=== PATIENT | male | born 1970 | race Caucasian/White ===

== ENCOUNTER 2021-04-04 16:11 | Emergency (ER) | payer MEDICARE, SELFPAY ==
[2021-04-04 17:20] VITALS: BP 135/72; PULSE 60; RESP 20; TEMP 36.8; O2SAT 98; BMI 38.0
[2021-04-04 17:49] LABS: UTC Strep Screen (Rapid) Negative (Negative)
--- NOTE | 2021-04-04 17:58 | HMH.EDUTC ---
[facility] [place] Disposition Clinical Impression: Sinusitis Qualifiers: Sinusitis location: unspecified location Chronicity: acute Recurrence: non-recurrent Qualified Code(s): J01.90 - Acute sinusitis, unspecified Pharyngitis Qualifiers: Pharyngitis/tonsillitis etiology: unspecified etiology Qualified Code(s): J02.9 - Acute pharyngitis, unspecified Disposition: Home, Self-Care Condition on Discharge: Good Instructions: DI for Sinusitis Additional Instructions: Drink plenty of fluids. Take tylenol or ibuprofen for pain or fever. Take the medications as directed. Follow up with your regular doctor. GO TO THE ER FOR ANY WORSENING SYMPTOMS Quarantine until you know the results of your covid-19 test. If it is positive, the health department should call you and give you further instructions about your length of Quarantine and other things. Notify your school or workplace of your results and follow their instructions regarding return to work/school. Don't start the oral steroids until tomorrow, since you had the shot here today. Prescriptions: Amoxicillin/Potassium Clav [Augmentin 875-125 Tablet] 1 tab PO Q12H 10 Days #20 tab Transmission Status: Received by [facility] #[id number] predniSONE [Prednisone 20mg Tab] 20 mg PO BID 4 Days #8 tab Transmission Status: Received by [facility] #[id number] Benzonatate [Tessalon Perle 100mg Cap] 100 mg PO TIDP PRN #30 cap PRN Reason: Cough Transmission Status: Received by [facility] #[id number] Referrals: Provider,Referral, [Primary Care Provider] - Time of Disposition: 18:05 Medical Decision Making - Medical Records Medical records reviewed: No: I reviewed the patient's medical records. - Radu Inquiry Pt receiving controlled substance: No Vital Signs: 04/04/21 17:20 04/04/21 18:08 Temperature 98.3 F 98.3 F Temperature Source Oral Pulse Rate 60 Pulse Rate [Right Brachial] 60 Respiratory Rate 20 20 Blood Pressure 135/72 Blood Pressure [Right Arm] 135/72 Blood Pressure Mean [Right Arm] 93 Blood Pressure Source [Right Arm] Automatic Cuff Blood Pressure Position [Right Arm] Sitting 02 Sat by Pulse Oximetry 98 Oxygen Delivery Method Room Air - Lab Data Lab results reviewed: Yes: I reviewed the patient's lab results. Lab Results 04/04/21 17:40: Strep Scn Rapid Clinic Negative Orders (Tests/Meds): ED MEDICATIONS Discontinued Medications Generic Name Dose Route Start Last Admin Trade Name Sony PRN Reason Stop Dose Admin Methylprednisolone Sodium Succinate 125 mg 04/04/21 17:58 04/04/21 18:06 Methylprednisolone Sod Succ 125mg Vial IM 04/04/21 17:59 125 mg ONCE ONE Administration ORDERS Category Date Time Status Strep Screen Confirmation Stat Micro 04/04/21 17:40 Received [facility] [place] HPI - General Stated complaint: sore throat runny nose Time Seen by Provider: 04/04/21 17:59 Mode of Arrival: Ambulatory Source of Information: Patient Limitations: No Limitations Description of Symptoms (Recalled from Triage Doc. by RN): PATIENT C/O SORE THROAT X 2 DAYS HEENT Symptoms (Recalled from RN notes): Yes Resp Symptoms (Recalled from RN notes): No Skin Symptoms (Recalled from RN notes): No MS Symptoms (Recalled from RN notes): No Functional Status (Recalled from RN notes): WNL - History of Present Illness Provider Complaint: He states that he has had a sore throat, sinus congestion, dry cough and he has felt bad for the past 3 days. His has similar symptoms and she has tested negative for covid-19. He has been vaccinated for covid-19 with the pfizer vaccine back in November. He denies any fever. - Related Data Previous Rx's Medication Instructions Recorded Amoxicillin/Potassium Clav 1 tab PO Q12H 10 Days #20 tab 04/04/21 [Augmentin 875-125 Tablet] Benzonatate [Tessalon Perle 100mg 100 mg PO TIDP PRN #30 cap 04/04/21 Cap] predniSONE [Prednisone 20mg 20 mg PO BID 4 Days #8 tab 04/04/21
[2021-04-04 18:08] VITALS: BP 135/72; PULSE 60; RESP 20; TEMP 36.8; O2SAT 98
== END 2021-04-04 18:12 | disposition home or self-care (01) ==
PROVIDERS: Emergency Provider Nurse Practitioner Family
DX: J01.90 Acute sinusitis, unspecified (principal)
CPT/HCPCS: 87880; 96372; 99202; C9803; G0463; U0003; U0005

== ENCOUNTER → 2021-07-01 14:00 | Outpatient (CLI) | payer MEDICARE, SELFPAY | PROVIDERS: Visit Provider Nurse Practitioner | DX: Z20.822 Contact with and (suspected) exposure to COVID-19 (principal) | CPT/HCPCS: C9803; U0003; U0005 ==

== ENCOUNTER 2022-01-31 14:18 | Emergency (ER) | payer MEDICARE, SELFPAY ==
--- NOTE | 2022-01-31 14:16 | ECG_ITS ---
APPROVED REPORT Exam: Resting ECG HR:50 bpm ECG Measurements Heart Rate 50 AXES TN 140 P 37 QRSd 109 QRS 27 QT 419 T 267 QTc 392 Conclusion SINUS BRADYCARDIA NONSPECIFIC T-WAVE ABNORMALITY ABNORMAL ECG UNCONFIRMED REPORT Electronically signed by : Nils Burris MD 02/01/2022 14:15:29
[2022-01-31 14:19] VITALS: BP 133/81; PULSE 51; RESP 18; TEMP 37; O2SAT 98; BMI 39.3
--- NOTE | 2022-01-31 14:26 | XR_ITS ---
FINAL REPORT CLINICAL HISTORY: chest pain FINDINGS: A portable view of the chest is obtained. Cardiac and mediastinal silhouettes are normal. There are mild basilar opacities there favoring atelectasis. There is no pleural effusion or pneumothorax. IMPRESSION: Bibasilar opacities favoring atelectasis. Recommend upright PA and lateral chest x-ray. Reviewed, Interpreted and Dictated by Anny Fam MD Transcribed by Nicolás Burk Authenticated and [facility]
--- NOTE | 2022-01-31 14:39 | HMH.EDCP ---
ED Disposition Clinical Impression: COVID Disposition: Home, Self-Care Condition on Discharge: Good Instructions: DI for COVID-19 (Suspected or Confirmed ) Referrals: Provider,Referral, [Referring] - - Critical Care Critical Care Time: No Attestation: On 01/31/22, the high probability of a clinically significant, sudden or life threatening deterioration of the following system(s) required my full and direct attention, intervention and personal management. The time I documented below is in addition to time spent performing reported procedures but includes the following listed in this critical care notation. Medical Decision Making - Radu Inquiry Pt receiving controlled substance: No Vital Signs: 01/31/22 14:19 01/31/22 16:17 Temperature 98.6 F Temperature Source Oral Pulse Rate 53 L Pulse Rate [Left Radial] 51 L Respiratory Rate 18 Blood Pressure 112/68 Blood Pressure [Right Arm] 133/81 Blood Pressure Mean [Right Arm] 98 Blood Pressure Source [Right Arm] Automatic Cuff Blood Pressure Position [Right Arm] Sitting 02 Sat by Pulse Oximetry 98 97 Oxygen Delivery Method Room Air - Lab Data Lab Results 01/31/22 14:20: WBC 5.0, RBC 5.19, Hgb 15.0, Hct 44.2, MCV 85.2, MCH 28.9, MCHC 33.9, RDW 13.0, Plt Count 158, MPV 8.7, Neut % (Auto) 54.1, Lymph % (Auto) 29.8, [place] % (Auto) 6.7, Eos % (Auto) 8.7, Baso % (Auto) 0.7, Neut # (Auto) 2.7, Lymph # (Auto) 1.5, [place] # (Auto) 0.3, Eos # (Auto) 0.4, Baso # (Auto) 0.0 01/31/22 14:20: Sodium 140, Potassium 4.4, Chloride 103, Carbon Dioxide 31 H, Anion Gap 10.4, BUN 11, Creatinine 0.90, Estimated Creat Clear 177, Estimated GFR 88, Est GFR ( Amer) 107, Glucose 115 H, Calcium 9.5, Troponin I < 0.01 Result diagrams: 01/31/22 14:20 01/31/22 14:20 Orders (Tests/Meds): ORDERS Category Date Time Status Rapid PCR Covid and Flu A/B Stat Lab 01/31/22 14:20 Received Troponin I Q3H Lab 01/31/22 17:30 Ordered Troponin I Q3H Lab 01/31/22 20:30 Ordered Medical Decision Narrative: In review this is a 51-year-old male who presents with chest pain. Hemodynamically stable and nontoxic-appearing. His physical exam is overall unremarkable. He is not tachycardic and his oxygen saturation is 98% on room air on my examination. With his likely home COVID test being positive now will resolve him here for an official test as well as check his laboratory studies to evaluate for any abnormalities. His laboratory studies were unremarkable and his troponin was normal. His EKG showed normal sinus rhythm without acute ST abnormality. His chest x-ray shows no evidence of pneumonia to some scattered atelectasis. I talked him about symptomatic care of his COVID over the next couple of days and he voiced understanding of this. At this point stable for discharge. Return precautions given. Chest Pain HPI - General Chief Complaint: Chest Pain Stated Complaint: chest tightness Time Seen by Provider: 01/31/22 14:25 Mode of Arrival: Ambulatory Limitations: No Limitations Description of Symptoms (Recalled from ER Triage Doc. by RN): c/o chest pain/pressure that started earlier today. Tested positive today as home - History of Present Illness HPI narrative: Patient is a 51-year-old male who presents today with chest pain. He states that a few days ago he started feeling poorly. He took a home COVID test which was negative. He subsequently tested positive yesterday. He says that today he woke up and started having chest pain and palpitations he wanted to come in for evaluation. He says that his blood pressure has also been running high at home. He said that he did feel little short of breath with ambulation. He endorses cough, fever, myalgias. Denies any abdominal pain. Denies any nausea or vomiting. Denies any constipation or diarrhea. - Related Data Previous Rx's Medication Instructions Recorded Amoxicillin/Potassium Clav 1 tab PO Q12H 10 Days #20
--- NOTE | 2022-01-31 14:39 | PC.NURSE ---
radiology in room
[2022-01-31 14:48] LABS: Basophils % 0.7 % (0.1-2.0); Eosinophils # 0.4 K/mm3 (0.0-0.4); Eosinophils % 8.7 % (0.1-12.0); Hematocrit 44.2 % (42.0-52.0); Lymphocytes # 1.5 K/mm3 (0.7-4.5); Lymphocytes % 29.8 % (10-50); Mean Corpuscular HGB Conc 33.9 g/dL (31.8-35.4); Mean Corpuscular Hemoglobin 28.9 pg (27.0-31.2); Mean Corpuscular Volume 85.2 fl (80-94); Mean Platelet Volume 8.7 fl (7.4-10.4); Monocytes # 0.3 K/mm3 (0.1-1.0); Monocytes % 6.7 % (1.7-9.3); Neutrophils # 2.7 K/mm3 (1.8-7.8); Neutrophils % 54.1 % (37.0-80.0); Platelet Count 158 K/mm3 (142-424); Red Blood Count 5.19 M/mm3 (4.60-6.20)
[2022-01-31 14:54] LABS: Potassium 4.4 mmoL/L (3.5-5.1); Sodium 140 mmol/L (136-145)
[2022-01-31 14:55] LABS: Chloride 103 mmol/L (98-107)
[2022-01-31 14:57] LABS: Anion Gap 10.4 mEq/L (5-15); Carbon Dioxide 31 mmol/L (22.0-30.0)
[2022-01-31 14:58] LABS: Blood Urea Nitrogen 11 mg/dl (9-20); Calcium 9.5 mg/dl (8.4-10.2); Creatinine Clearance Estimated 177 mL/min (50-200); Estimated Glomerular Filt Rate 88 ml/min (>60); GFR (African American) 107 ML/MIN (>60); Glucose 115 mg/dl (74-100)
[2022-01-31 15:14] LABS: Troponin I < 0.01 ng/ml (0.00-0.034)
[2022-01-31 16:17] VITALS: BP 112/68; PULSE 53; O2SAT 97
--- NOTE | 2022-01-31 16:24 | PC.NURSE ---
rounded on patient, patient asked for a drink and i advised i would check with the ER Doc. patient was able to have some ice chips.
[2022-01-31 16:52] LABS: Influenza A, PCR Not Detected (NotDetected); Influenza B, PCR Not Detected (NotDetected)
[2022-01-31 17:20] LABS: Coronavirus 19, PCR Detected (NotDetected)
[2022-01-31 17:33] VITALS: BP 108/66; PULSE 53; RESP 18; TEMP 37; O2SAT 98
== END 2022-01-31 17:34 | disposition home or self-care (01) ==
PROVIDERS: Emergency Provider Student in an Organized Health Care Education/Training Program; PCP Family Medicine Adult Medicine
DX: U07.1 COVID-19 (principal)
CPT/HCPCS: 71045; 80048; 84484; 85025; 93005; 99282; 99283; C9803; U0003; U0005

== ENCOUNTER → 2022-05-31 09:12 | Outpatient (CLI) | payer MEDICARE, SELFPAY ==
[2022-05-31 09:50] LABS: Basophils # 0.1 K/mm3 (0-0.2); Basophils % 0.7 % (0.1-2.0); Eosinophils # 0.4 K/mm3 (0.0-0.4); Eosinophils % 5.2 % (0.1-12.0); Hemoglobin 14.7 g/dL (14.1-18.0); Lymphocytes # 2.3 K/mm3 (0.7-4.5); Lymphocytes % 29.3 % (10-50); Mean Corpuscular HGB Conc 32.6 g/dL (31.8-35.4); Mean Corpuscular Hemoglobin 28.5 pg (27.0-31.2); Mean Corpuscular Volume 87.5 fl (80-94); Mean Platelet Volume 9.3 fl (7.4-10.4); Monocytes # 0.4 K/mm3 (0.1-1.0); Monocytes % 5.3 % (1.7-9.3); Neutrophils # 4.6 K/mm3 (1.8-7.8); Neutrophils % 59.4 % (37.0-80.0); Platelet Count 213 K/mm3 (142-424); Red Blood Count 5.14 M/mm3 (4.60-6.20); Red Cell Distribution Width 13.8 % (11.5-17.5); White Blood Count 7.7 K/mm3 (4.8-10.8)
[2022-05-31 10:29] LABS: Chloride 100 mmol/L (98-107); Potassium 4.5 mmoL/L (3.5-5.1); Sodium 142 mmol/L (136-145)
[2022-05-31 10:31] LABS: Blood Urea Nitrogen 8 mg/dl (9-20); Estimated Glomerular Filt Rate 78 ml/min (>60); GFR (African American) 94 ML/MIN (>60)
[2022-05-31 10:32] LABS: Alanine Aminotransferase 38 U/L (12-78); Albumin Level 4.3 g/dl (3.5-5.0); Alkaline Phosphatase 75 U/L (38-126); Anion Gap 15.5 mEq/L (5-15); Aspartate Amino Transferase 32 U/L (17-59); Bilirubin,Direct 0.1 mg/dl (0.0-0.4); Bilirubin,Indirect 1.8 mg/dL (0.0-0.9); Bilirubin,Total 1.9 mg/dl (0.2-1.3); Bilirubin,Unconjugated 1.8 mg/dL (0.0-1.1); Calcium 9.9 mg/dl (8.4-10.2); Carbon Dioxide 31 mmol/L (22.0-30.0); Glucose 104 mg/dl (74-100); Total Protein,Serum 7.3 g/dl (6.3-8.2)
[2022-05-31 10:55] LABS: Troponin I < 0.01 ng/ml (0.00-0.034)
[2022-05-31 11:08] LABS: Thyroid Stimulating Hormone 1.27 uIU/mL (0.465-4.68)
== END ==
PROVIDERS: PCP Family Medicine; Visit Provider Nurse Practitioner Family
DX: E11.69 Type 2 diabetes mellitus with other specified complication (principal); E78.5 Hyperlipidemia, unspecified; I10 Essential (primary) hypertension; K21.9 Gastro-esophageal reflux disease without esophagitis; R00.2 Palpitations; R94.31 Abnormal electrocardiogram [ECG] [EKG]; Z82.49 Family history of ischemic heart disease and other diseases of the circulatory system; Z87.891 Personal history of nicotine dependence; I63.9 Cerebral infarction, unspecified; R06.00 Dyspnea, unspecified; Z79.84 Long term (current) use of oral hypoglycemic drugs
CPT/HCPCS: 36415; 80048; 80076; 84439; 84443; 84484; 85025; 93225

== ENCOUNTER → 2022-06-16 06:59 | Outpatient (CLI) | payer MEDICARE, SELFPAY ==
[2022-06-16 08:41] LABS: Microscopic, Urine URINE MICROSCOPIC (MICROSCOPIC)
[2022-06-16 09:14] LABS: Appearance,Urine CLEAR (Clear); Bilirubin,Urine Negative (Negative); Blood, Urine Negative (Negative); Color,Urine YELLOW (Yellow); Glucose,Urine (UA) Negative (Negative); Ketones,Urine Negative (Negative); Leukocyte Esterase,Urine Negative (Negative); Nitrate,Urine Negative (Negative); PH,Urine 6.5 (5.0-8.5); Protein,Urine Negative (Negative); Urobilinogen,Urine 0.2 EU/dl (0.2)
[2022-06-16 09:27] LABS: Creatinine,Urine Random 46 mg/dL (Not Estab.); Squamous Epithelial Cell,Urine Occasional #/hpf (0-5)
[2022-06-16 09:28] LABS: Hemoglobin A1C 6.1 % (4.0-6.0); Microalbumin < 6.000 mg/L (0-16.7)
[2022-06-16 09:33] LABS: Alanine Aminotransferase 42 U/L (12-78); Albumin Level 4.4 g/dl (3.5-5.0); Albumin/Globulin Ratio 1.5 (1.1-1.8); Alkaline Phosphatase 75 U/L (38-126); Anion Gap 12.6 mEq/L (5-15); Aspartate Amino Transferase 35 U/L (17-59); Bilirubin,Total 1.5 mg/dl (0.2-1.3); Blood Urea Nitrogen 10 mg/dl (9-20); Calcium 9.8 mg/dl (8.4-10.2); Carbon Dioxide 30 mmol/L (22.0-30.0); Chloride 103 mmol/L (98-107); Chol/HDL Ratio 3.7 (1-3.5); Cholesterol 132 mg/dl (140-200); Estimated Glomerular Filt Rate 78 ml/min (>60); GFR (African American) 94 ML/MIN (>60); Globulin 2.9 g/dL (1.3-3.2); Glucose 112 mg/dl (74-100); HDL Cholesterol 36 mg/dl (40-60); Potassium 4.6 mmoL/L (3.5-5.1); Sodium 141 mmol/L (136-145); Total Protein,Serum 7.3 g/dl (6.3-8.2); Triglycerides 82 mg/dl (30-150); VLDL Cholesterol 16 mg/dL (0-40)
[2022-06-16 09:44] LABS: Direct LDL Cholesterol 78.63 mg/dL (100-129)
[2022-06-16 09:50] LABS: 25-OH Vitamin D, Total 36.1 ng/mL (30-100)
[2022-06-16 10:04] LABS: Prostate Specific Ag Screen 0.9 ng/ml (0.0-4.0)
== END ==
PROVIDERS: PCP Family Medicine; Visit Provider Nurse Practitioner Family
DX: E11.69 Type 2 diabetes mellitus with other specified complication (principal); E78.5 Hyperlipidemia, unspecified; I10 Essential (primary) hypertension; K21.9 Gastro-esophageal reflux disease without esophagitis; R00.2 Palpitations; R60.9 Edema, unspecified; R94.31 Abnormal electrocardiogram [ECG] [EKG]; Z82.49 Family history of ischemic heart disease and other diseases of the circulatory system; Z87.891 Personal history of nicotine dependence; Z12.5 Encounter for screening for malignant neoplasm of prostate; E55.9 Vitamin D deficiency, unspecified; Z79.84 Long term (current) use of oral hypoglycemic drugs
CPT/HCPCS: 36415; 78452; 80053; 80061; 81001; 82043; 82306; 82570; 83036; 93017; 93306; G0103; A9502; J2785

== ENCOUNTER → 2022-07-22 11:57 | Outpatient (CLI) | payer MEDICARE, SELFPAY ==
[2022-07-22 13:23] LABS: Anion Gap 15.1 mEq/L (5-15); Blood Urea Nitrogen 13 mg/dl (9-20); Calcium 9.2 mg/dl (8.4-10.2); Carbon Dioxide 27 mmol/L (22.0-30.0); Chloride 102 mmol/L (98-107); Estimated Glomerular Filt Rate 78 ml/min (>60); GFR (African American) 94 ML/MIN (>60); Glucose 106 mg/dl (74-100); Potassium 4.1 mmoL/L (3.5-5.1); Sodium 140 mmol/L (136-145)
== END ==
PROVIDERS: PCP Family Medicine; Visit Provider Physician Assistant
DX: E11.69 Type 2 diabetes mellitus with other specified complication (principal); E78.5 Hyperlipidemia, unspecified; I10 Essential (primary) hypertension; K21.9 Gastro-esophageal reflux disease without esophagitis; R00.2 Palpitations; R94.31 Abnormal electrocardiogram [ECG] [EKG]; Z82.49 Family history of ischemic heart disease and other diseases of the circulatory system; Z87.891 Personal history of nicotine dependence; Z79.84 Long term (current) use of oral hypoglycemic drugs
CPT/HCPCS: 36415; 80048

== ENCOUNTER → 2022-09-15 07:46 | Outpatient (CLI) | payer MEDICARE, SELFPAY ==
[2022-09-15 08:56] LABS: Alanine Aminotransferase 43 U/L (12-78); Albumin Level 4.2 g/dl (3.5-5.0); Albumin/Globulin Ratio 1.6 (1.1-1.8); Alkaline Phosphatase 66 U/L (38-126); Aspartate Amino Transferase 36 U/L (17-59); Bilirubin,Total 1.2 mg/dl (0.2-1.3); Blood Urea Nitrogen 10 mg/dl (9-20); Calcium 8.8 mg/dl (8.4-10.2); Carbon Dioxide 30 mmol/L (22.0-30.0); Chloride 101 mmol/L (98-107); Estimated Glomerular Filt Rate 78 ml/min (>60); GFR (African American) 94 ML/MIN (>60); Globulin 2.7 g/dL (1.3-3.2); Glucose 125 mg/dl (74-100); Potassium 4.8 mmoL/L (3.5-5.1); Total Protein,Serum 6.9 g/dl (6.3-8.2)
[2022-09-15 09:06] LABS: Anion Gap 9.8 mEq/L (5-15); Sodium 136 mmol/L (136-145)
[2022-09-15 09:15] LABS: Hemoglobin A1C 6.4 % (4.0-6.0)
== END ==
PROVIDERS: PCP Family Medicine; Visit Provider Family Medicine
DX: E11.69 Type 2 diabetes mellitus with other specified complication (principal); Z79.84 Long term (current) use of oral hypoglycemic drugs
CPT/HCPCS: 36415; 80053; 83036

== ENCOUNTER → 2022-12-16 09:44 | Outpatient (CLI) | payer MEDICARE, SELFPAY ==
[2022-12-16 11:03] LABS: Hemoglobin A1C 6.1 % (4.0-6.0)
[2022-12-16 11:11] LABS: Alanine Aminotransferase 31 U/L (12-78); Albumin Level 4.3 g/dl (3.5-5.0); Albumin/Globulin Ratio 1.6 (1.1-1.8); Alkaline Phosphatase 54 U/L (38-126); Anion Gap 15.8 mEq/L (5-15); Aspartate Amino Transferase 35 U/L (17-59); Bilirubin,Total 1.6 mg/dl (0.2-1.3); Blood Urea Nitrogen 14 mg/dl (9-20); Calcium 9.1 mg/dl (8.4-10.2); Carbon Dioxide 30 mmol/L (22.0-30.0); Chloride 99 mmol/L (98-107); Chol/HDL Ratio 3.6 (1-3.5); Cholesterol 107 mg/dl (140-200); Estimated Glomerular Filt Rate 78 ml/min (>60); GFR (African American) 94 ML/MIN (>60); Globulin 2.7 g/dL (1.3-3.2); Glucose 106 mg/dl (74-100); HDL Cholesterol 30 mg/dl (40-60); Potassium 4.8 mmoL/L (3.5-5.1); Sodium 140 mmol/L (136-145); Triglycerides 164 mg/dl (30-150); VLDL Cholesterol 33 mg/dL (0-40)
[2022-12-16 11:21] LABS: Direct LDL Cholesterol 57.44 mg/dL (100-129)
[2022-12-26 13:39] LABS: 1,25 Dihydroxy Vitamin D 41 pg/mL (.); 1,25-Dihydroxy, Vitamin D-2 <10 pg/mL (.); 1,25-Dihydroxy, Vitamin D-3 41 pg/mL (.)
== END ==
PROVIDERS: PCP Nurse Practitioner Family; Visit Provider Family Medicine
DX: E11.69 Type 2 diabetes mellitus with other specified complication (principal); E55.9 Vitamin D deficiency, unspecified; E78.5 Hyperlipidemia, unspecified; E80.6 Other disorders of bilirubin metabolism; F32.A Depression, unspecified; H61.23 Impacted cerumen, bilateral; I10 Essential (primary) hypertension; K21.9 Gastro-esophageal reflux disease without esophagitis; R00.2 Palpitations; Z12.5 Encounter for screening for malignant neoplasm of prostate; Z79.84 Long term (current) use of oral hypoglycemic drugs
CPT/HCPCS: 36415; 80053; 80061; 82652; 83036

== ENCOUNTER → 2023-03-22 13:55 | Outpatient (CLI) | payer MEDICARE, SELFPAY ==
[2023-03-22 14:57] LABS: Iron 72 ug/dL (49-181)
[2023-03-22 15:06] LABS: Total Iron Binding Capacity 308 ug/dL (261-462)
[2023-03-22 15:33] LABS: Ferritin 82.2 ng/ml (17.9-464)
== END ==
PROVIDERS: PCP Nurse Practitioner Family; Visit Provider Nurse Practitioner Family
DX: E83.10 Disorder of iron metabolism, unspecified (principal); G25.81 Restless legs syndrome
CPT/HCPCS: 36415; 82728; 83540; 83550

== ENCOUNTER → 2023-03-23 13:57 | Outpatient (CLI) | payer MEDICARE, SELFPAY | PROVIDERS: PCP Nurse Practitioner Family; Visit Provider Nurse Practitioner Family | DX: G47.33 Obstructive sleep apnea (adult) (pediatric) (principal); I48.19 Other persistent atrial fibrillation | CPT/HCPCS: 94762 ==

== ENCOUNTER → 2023-04-06 12:10 | Outpatient (CLI) | payer MEDICARE, SELFPAY | PROVIDERS: PCP Nurse Practitioner Family; Visit Provider Nurse Practitioner Family | DX: J02.9 Acute pharyngitis, unspecified (principal); Z87.891 Personal history of nicotine dependence | CPT/HCPCS: 87070 ==

== ENCOUNTER → 2023-04-19 12:11 | Outpatient (CLI) | payer MEDICARE, SELFPAY | PROVIDERS: PCP Nurse Practitioner Family; Visit Provider Nurse Practitioner Family | DX: G47.33 Obstructive sleep apnea (adult) (pediatric) (principal); G25.81 Restless legs syndrome; I48.19 Other persistent atrial fibrillation | CPT/HCPCS: 94762 ==

== ENCOUNTER 2023-05-22 08:08 | Day surgery (SDC) | payer MEDICARE, SELFPAY ==
--- NOTE | 2023-05-22 08:11 | CA_ITS ---
APPROVED REPORT EXAM: Comprehensive 2D, Doppler, and color-flow Echocardiogram Environmental Web Crawler: RT Donte(R) Ht: 6 ft 2 in Wt: 296lbs BSA: 2.57 BP: 126/72 mmHg Indications: AFIB cardioversion, ex smoker, palpitatios, HTN, DM, LILY Procedure After obtaining informed consent, patient underwent transesophageal echo in the [facility]. Type of Sedation : MAC Sedation start time: 9:40 Case end Time: 9:50 Sedation was achieved intravenously with: Propofol (310) The EDITH was performed without complications. Synchronized Cardioversion acheived with 200 Joules after 2 attempt(s). Rhythm following Synchronized Cardioversion: Normal Sinus Rhythm Throughout the procedure, the blood pressure, pulse oximetry, cardiac rhythm, and rate were monitored. The patient tolerated the procedure without adverse effects. Recovery from conscious sedation was uneventful and vital signs were stable. Left Ventricle The left ventricle is normal size. The left ventricular systolic function is normal. The left ventricular ejection fraction is within the normal range. There is proximal septal thickening present. There is normal LV segmental wall motion. LVEF is 55%. Right Ventricle Right ventricle is mildly dilated. The right ventricular systolic function is normal. Atria Left atrium is mildly dilated. No thrombus is visualized in the left atrium or appendage. Right atrium is mildly dilated. Interatrial septum is intact without evidence of ASD or PFO. Aortic Valve The aortic valve is normal in structure. The aortic valve is trileaflet. No aortic regurgitation is present. Mitral Valve The mitral valve is normal in structure. No evidence of mitral valve stenosis. Mild mitral regurgitation. Tricuspid Valve The tricuspid valve leaflets are thin and pliable. Trace tricuspid regurgitation. There is insufficient TR jet to estimate RVSP. Pulmonic Valve The pulmonary valve is normal in structure. Trace pulmonic regurgitation. Great Vessels The aortic root is normal in size. The ascending aorta is boderline dilated, measuring 3.7 cm in diameter. Pericardium There is no pericardial effusion. Other Information Study Quality: Adequate Conclusion Normal biventricular systolic function. Mildly dilated RV. No evidence of LA or CINDY mass or thrombus. Mild MR. The patient underwent EDITH / DCCV. Initially, he did not convert after the first attempt of 150J. Then, he converted to NSR after second attempt with 200J. Electronically signed by : Elissa Tripp MD 05/22/2023 20:11:35
[2023-05-22 08:22] VITALS: BMI 39.3
--- NOTE | 2023-05-22 08:35 | ECG_ITS ---
APPROVED REPORT Exam: Resting ECG HR:57 bpm ECG Measurements Heart Rate 57 AXES QRSd 114 QRS 18 QT 397 T -63 QTc 392 Conclusion ATRIAL FIBRILLATION WITH SLOW VENTRICULAR RESPONSE MODERATE INTRAVENTRICULAR CONDUCTION DELAY [110+ ms QRS DURATION] MODERATE T-WAVE ABNORMALITY, CONSIDER INFERIOR ISCHEMIA [-0.1+ mV T-WAVE IN II/aVF] ABNORMAL ECG INTERPRETATION BASED ON A DEFAULT AGE OF 40 YEARS UNCONFIRMED REPORT Electronically signed by : Nils Burris MD 05/23/2023 20:14:17
[2023-05-22] MEDS: LACTATED RINGERS 1000ML 1,000 ML 25 ML IV (08:37)
[2023-05-22 08:41] VITALS: BP 109/64; PULSE 56; RESP 18; TEMP 36.3; O2SAT 99
[2023-05-22 08:54] LABS: Basophils % 0.4 % (0.1-2.0); Eosinophils # 0.3 K/mm3 (0.0-0.4); Eosinophils % 4.4 % (0.1-12.0); Hematocrit 42.4 % (42.0-52.0); Hemoglobin 14.7 g/dL (14.1-18.0); Lymphocytes # 2.2 K/mm3 (0.7-4.5); Lymphocytes % 33.7 % (10-50); Mean Corpuscular HGB Conc 34.6 g/dL (31.8-35.4); Mean Corpuscular Volume 86.7 fl (80-94); Mean Platelet Volume 9.6 fl (7.4-10.4); Monocytes # 0.4 K/mm3 (0.1-1.0); Monocytes % 5.7 % (1.7-9.3); Neutrophils # 3.6 K/mm3 (1.8-7.8); Neutrophils % 55.8 % (37.0-80.0); Platelet Count 162 K/mm3 (142-424); Red Blood Count 4.89 M/mm3 (4.60-6.20); Red Cell Distribution Width 13.7 % (11.5-17.5); White Blood Count 6.5 K/mm3 (4.8-10.8)
[2023-05-22 09:00] LABS: Chloride 104 mmol/L (98-107); Potassium 3.8 mmoL/L (3.5-5.1); Sodium 140 mmol/L (136-145)
--- NOTE | 2023-05-22 09:01 | P.PNANES_ITS ---
[facility] Disclaimer: The information contained in this section may have been updated after the patient was seen, as this information can be updated by other users. Medical History Allergies Anxiety Arthritis Atrial fibrillation COVID DDD (degenerative disc disease) Depression Diabetes GERD (gastroesophageal reflux disease) History of COVID-19 Hyperlipidemia associated with type 2 diabetes mellitus Impacted cerumen, bilateral Neuropathy Pharyngitis Pharyngitis Sinusitis Sleep apnea Vitamin A deficiency Surgical History H/O neck surgery History of cardiac cath History of open reduction and internal fixation (ORIF) procedure History of surgery on arm Hx of colonoscopy S/P rotator cuff repair Family History Father Diabetes Cancer skin cancer Mother Cancer skin cancer Sister Heart attack Social History Smoking Status: Former smoker years smoked: 15 how long ago did patient quit smokin years second hand exposure: No alcohol intake: never substance use type: denies use current occupational status: disabled Travel in the last 8 weeks: None adopted: No caregiver/support person: Yes household members: spouse housing: house lives independently: Yes marital status: number of children: [address] [facility] Anesthesia Checklist Patient Identification Patient Identification: Arm Band, Family and Verbal (Name & ) Structural Data Admitted From: Home Planned Operative Procedure/s: EDITH w/ poss cardioversion Consent for Planned Operative Procedure(s) Verified: Yes Verified Documents: Surgical Consent and History and Physical NPO Status Verified Time NPO: 22:00 Chart Verification Results Verified: CBC, BMP, ECG and Chest Xray Additional verifications Patient : No Anesthesia Reactions: No Hx Blood Transfusions: No Blood Transfusion Reaction: No Cephalosporin Allergy: No Previous Colonoscopy: No Cardiovascular Assessment Pulse Rhythm: Irregular Peripheral Edema: No Airway Assessment Mallampati Score:: Class III C-Spine Mobility Assessed: Yes TMJ Mobility Assessed: Yes Dentition: Good Dentition (Nothing loose per pt.) Neurological Assessment Level of Consciousness: Awake, Alert, Appropriate and Follows Commands Hx Seizures: No Numbness or tingling in extremities: No Anesthesia Plan Anesthesia Risk discussed: Yes Anesthesia Plan: Verified ASA Class: III Anesthesia Type: MAC
[2023-05-22 09:03] LABS: Anion Gap 10.8 mEq/L (5-15); Blood Urea Nitrogen 12 mg/dl (9-20); Carbon Dioxide 29 mmol/L (22.0-30.0); Creatinine Clearance Estimated 173 mL/min (50-200); Estimated Glomerular Filt Rate 88 ml/min (>60); GFR (African American) 106 ML/MIN (>60); INR 1.04 (0.9-1.1); Prothrombin Time 11.2 seconds (10.1-12.5)
[2023-05-22 09:04] LABS: Calcium 8.9 mg/dl (8.4-10.2); Glucose 139 mg/dl (74-100)
[2023-05-22 09:36] VITALS: O2SAT 100
--- NOTE | 2023-05-22 09:53 | SUR.OPER ---
0950- pt unsuccessfully cardioverted at 150j per dr. de leon. increased to 200j with successful cardoversion.
[2023-05-22 10:00] VITALS: BP 121/68; PULSE 75; RESP 16; TEMP 36.4; O2SAT 95
[2023-05-22 10:10] VITALS: BP 118/64; PULSE 80; RESP 14; O2SAT 95
[2023-05-22 10:20] VITALS: BP 114/57; PULSE 75; RESP 16; O2SAT 94
--- NOTE | 2023-05-22 10:20 | ECG_ITS ---
APPROVED REPORT Exam: Resting ECG HR:61 bpm ECG Measurements Heart Rate 61 AXES TX 187 P 46 QRSd 118 QRS 8 QT 389 T -5 QTc 393 Conclusion SINUS RHYTHM MODERATE INTRAVENTRICULAR CONDUCTION DELAY [110+ ms QRS DURATION] NONSPECIFIC T-WAVE ABNORMALITY BORDERLINE ECG UNCONFIRMED REPORT Electronically signed by : Nils Burris MD 05/23/2023 20:13:53
[2023-05-22 10:30] VITALS: BP 111/60; PULSE 62; RESP 18; O2SAT 97
[2023-05-23 10:29] LABS: POC Glucose,Bedside 129 (70-110)
== END 2023-05-22 10:35 | disposition home or self-care (01) ==
PROVIDERS: PCP Nurse Practitioner Family; Visit Provider Internal Medicine
DX: I48.19 Other persistent atrial fibrillation (principal); E11.9 Type 2 diabetes mellitus without complications; Z79.899 Other long term (current) drug therapy; I10 Essential (primary) hypertension
CPT/HCPCS: 80048; 82962; 85025; 85610; 92960; 93005; 93312

== ENCOUNTER → 2023-06-22 13:31 | Outpatient (CLI) | payer MEDICARE, SELFPAY ==
[2023-06-22 12:45] LABS: Basophils % 0.6 % (0.1-2.0); Eosinophils # 0.2 K/mm3 (0.0-0.4); Eosinophils % 3.6 % (0.1-12.0); Hematocrit 43.8 % (42.0-52.0); Hemoglobin 14.8 g/dL (14.1-18.0); Lymphocytes # 2.1 K/mm3 (0.7-4.5); Lymphocytes % 30.5 % (10-50); Mean Corpuscular HGB Conc 33.8 g/dL (31.8-35.4); Mean Corpuscular Hemoglobin 29.9 pg (27.0-31.2); Mean Corpuscular Volume 88.5 fl (80-94); Mean Platelet Volume 9.8 fl (7.4-10.4); Monocytes # 0.5 K/mm3 (0.1-1.0); Monocytes % 6.7 % (1.7-9.3); Neutrophils % 58.6 % (37.0-80.0); Platelet Count 182 K/mm3 (142-424); Red Blood Count 4.95 M/mm3 (4.60-6.20); Red Cell Distribution Width 13.9 % (11.5-17.5); White Blood Count 6.8 K/mm3 (4.8-10.8)
[2023-06-22 13:41] LABS: Alanine Aminotransferase 53 U/L (12-78); Alkaline Phosphatase 59 U/L (38-126); Aspartate Amino Transferase 39 U/L (17-59); Bilirubin,Total 1.1 mg/dl (0.2-1.3); Blood Urea Nitrogen 12 mg/dl (9-20); Calcium 8.7 mg/dl (8.4-10.2); Carbon Dioxide 28 mmol/L (22.0-30.0); Chloride 103 mmol/L (98-107); Chol/HDL Ratio 4.3 (1-3.5); Cholesterol 139 mg/dl (140-200); Estimated Glomerular Filt Rate 100 ml/min (>60); GFR (African American) 121 ML/MIN (>60); Glucose 131 mg/dl (74-100); HDL Cholesterol 32 mg/dl (40-60); Triglycerides 149 mg/dl (30-150); VLDL Cholesterol 30 mg/dL (0-40)
[2023-06-22 13:43] LABS: Albumin Level 4.2 g/dl (3.5-5.0); Albumin/Globulin Ratio 1.4 (1.1-1.8); Anion Gap 10.2 mEq/L (5-15); Potassium 4.2 mmoL/L (3.5-5.1); Sodium 137 mmol/L (136-145); Total Protein,Serum 7.2 g/dl (6.3-8.2)
[2023-06-22 13:52] LABS: Direct LDL Cholesterol 88.13 mg/dL (100-129)
[2023-06-22 14:00] LABS: 25-OH Vitamin D, Total 59.6 ng/mL (30-100)
[2023-06-22 14:01] LABS: Free T4 (Free Thyroxine) 1.12 ng/dl (0.78-2.19)
[2023-06-22 14:12] LABS: Prostate Specific Ag Screen 0.5 ng/ml (0.0-4.0); Thyroid Stimulating Hormone 1.45 uIU/mL (0.465-4.68)
[2023-06-22 14:31] LABS: Vitamin B12 206 pg/mL (239-931)
[2023-06-22 15:09] LABS: Microalbumin/Creatinine Ratio 5.3
[2023-06-22 15:12] LABS: Creatinine,Urine Random 139 mg/dL (Not Estab.)
[2023-06-22 15:28] LABS: Hemoglobin A1C 6.6 % (4.0-6.0)
== END ==
PROVIDERS: PCP Nurse Practitioner Family; Visit Provider Nurse Practitioner Family
DX: E11.69 Type 2 diabetes mellitus with other specified complication (principal); I10 Essential (primary) hypertension; R00.2 Palpitations; Z68.37 Body mass index [BMI] 37.0-37.9, adult; E78.5 Hyperlipidemia, unspecified; G62.9 Polyneuropathy, unspecified; Z12.5 Encounter for screening for malignant neoplasm of prostate; E55.9 Vitamin D deficiency, unspecified; G47.33 Obstructive sleep apnea (adult) (pediatric); E66.9 Obesity, unspecified
CPT/HCPCS: 80053; 80061; 82043; 82306; 82570; 82607; 83036; 84439; 84443; 85025; G0103

== ENCOUNTER 2023-08-07 09:27 | Outpatient (CLI) | payer MEDICARE, SELFPAY ==
[2023-08-07 10:17] LABS: Alanine Aminotransferase 40 U/L (12-78); Albumin Level 4.1 g/dl (3.5-5.0); Alkaline Phosphatase 51 U/L (38-126); Aspartate Amino Transferase 37 U/L (17-59); Bilirubin,Indirect 1.5 mg/dL (0.0-0.9); Bilirubin,Total 1.5 mg/dl (0.2-1.3); Bilirubin,Unconjugated 1.6 mg/dL (0.0-1.1); Chol/HDL Ratio 4.9 (1-3.5); Cholesterol 107 mg/dl (140-200); HDL Cholesterol 22 mg/dl (40-60); Total Protein,Serum 7.1 g/dl (6.3-8.2); Triglycerides 156 mg/dl (30-150); VLDL Cholesterol 31 mg/dL (0-40)
[2023-08-07 10:28] LABS: Direct LDL Cholesterol 66.01 mg/dL (100-129)
== END 2023-08-07 23:59 ==
PROVIDERS: PCP Nurse Practitioner Family; Visit Provider Physician Assistant
DX: E11.69 Type 2 diabetes mellitus with other specified complication (principal); E78.5 Hyperlipidemia, unspecified; G47.33 Obstructive sleep apnea (adult) (pediatric); I10 Essential (primary) hypertension; I48.91 Unspecified atrial fibrillation; K21.9 Gastro-esophageal reflux disease without esophagitis; R00.2 Palpitations; R94.31 Abnormal electrocardiogram [ECG] [EKG]; Z82.49 Family history of ischemic heart disease and other diseases of the circulatory system; Z87.891 Personal history of nicotine dependence
CPT/HCPCS: 36415; 80061; 80076

== ENCOUNTER 2023-08-10 21:33 | Outpatient (CLI) | payer MEDICARE, SELFPAY ==
[2023-08-10 18:14] LABS: Coronavirus 19, PCR Not Detected (NotDetected); Influenza A, PCR Not Detected (NotDetected); Influenza B, PCR Not Detected (NotDetected)
== END 2023-08-10 23:59 ==
LOC: LAB.DROPOF 21:33
PROVIDERS: PCP Student in an Organized Health Care Education/Training Program; Visit Provider Student in an Organized Health Care Education/Training Program
DX: J02.9 Acute pharyngitis, unspecified (principal); R50.9 Fever, unspecified
CPT/HCPCS: 87070; 87636

== ENCOUNTER 2023-08-30 08:33 | Day surgery (SDC) | payer MEDICARE, SELFPAY ==
[2023-08-28 11:17] VITALS: BMI 38.0
[2023-08-30] MEDS: LACTATED RINGERS 1000ML 1,000 ML 25 ML IV (08:58)
[2023-08-30 09:02] VITALS: BP 131/76; PULSE 71; RESP 18; TEMP 36.2; O2SAT 98
[2023-08-30 09:47] VITALS: O2SAT 100
--- NOTE | 2023-08-30 10:01 | HMH.SCOPE ---
Procedure: Date: 08/30/23 Patient Date of :: 1970 Procedure Performed:: Colonoscopy Indications:: The patient is a 53-year-old who presents for surveillance colonoscopy for history of polyps in the past. Performing Provider:: Fransisco Zapata MD Referring Provider:: Carmen Mcmullen APRN Sedation:: See RN record Procedure:: After placing the patient in the left lateral decubitus position, the colonoscopy was gently inserted into the rectum and under direct visualization advanced to the cecum which was identified by transillumination in the right lower quadrant, identification of the ileocecal valve, appendiceal orifice, and cecal strap. Color, texture, mucosa, and anatomy of the colon were carefully examined with the scope. Findings:: The quality of the bowel preparation was excellent. The patient tolerated the procedure well. There was a diminutive polyp (1 to 3 mm) in the sigmoid colon. The polyp was sessile. The polyp was removed with a cold forceps. There was scattered diverticulosis in the sigmoid colon. Meaning colon appeared normal. There were internal hemorrhoids seen on retroflexion view of the rectum. Recommendations:: Await pathology result Recommend repeat colonoscopy in 5 years for surveillance Complications:: None Estimated blood obtained (mL): 0 Colonoscopy Component Colonoscopy Component Was a colonoscopy performed during today's procedure?: Yes Recommended follow up colonoscopy of at least 10 years?: Yes
[2023-08-30 10:02] VITALS: BP 111/63; PULSE 67; RESP 17; TEMP 36.6; O2SAT 95
[2023-08-30 10:12] VITALS: BP 106/62; PULSE 67; RESP 16; O2SAT 98
[2023-08-30 10:22] VITALS: BP 114/68; PULSE 73; RESP 16; O2SAT 99
[2023-08-30 10:27] VITALS: BP 117/69; PULSE 67; RESP 16; TEMP 36.6; O2SAT 100
--- NOTE | 2023-08-30 13:06 | P.PNANES_ITS ---
[facility] Disclaimer: The information contained in this section may have been updated after the patient was seen, as this information can be updated by other users. Medical History Allergies Anxiety Arthritis Atrial fibrillation BMI 37.0-37.9, adult Body mass index (BMI) of 40.1 to 44.9 in adult COVID DDD (degenerative disc disease) Depression Diabetes GERD (gastroesophageal reflux disease) History of COVID-19 Hyperlipidemia associated with type 2 diabetes mellitus Impacted cerumen, bilateral Neuropathy Pharyngitis Pharyngitis Sinusitis Sleep apnea Strep pharyngitis Vitamin A deficiency Surgical History (Updated 08/28/23 @ 11:15 by Sonia Jameson RN) H/O neck surgery History of cardiac cath History of open reduction and internal fixation (ORIF) procedure History of surgery on arm Hx of breast surgery Hx of colonoscopy S/P rotator cuff repair Family History (Updated 08/28/23 @ 11:16 by Sonia Jameson RN) Father Diabetes Cancer Mother Cancer Sister Heart attack Other Family history of stroke Social History (Updated 08/28/23 @ 11:16 by Sonia Jameson RN) Smoking Status: Former smoker years smoked: 15 how long ago did patient quit smokin years second hand exposure: No alcohol intake: never substance use type: denies use current occupational status: disabled Travel in the last 8 weeks: None adopted: No caregiver/support person: Yes household members: spouse housing: house lives independently: Yes marital status: number of children: [address] [facility] Anesthesia Checklist Patient Identification Patient Identification: Arm Band and Family Structural Data Admitted From: Home Planned Operative Procedure/s: COLONOSCOPY. Consent for Planned Operative Procedure(s) Verified: Yes Verified Documents: Surgical Consent and History and Physical Additional verifications Patient : No Anesthesia Reactions: No Hx Blood Transfusions: No Blood Transfusion Reaction: No Cephalosporin Allergy: No Previous Colonoscopy: No Cardiovascular Assessment Peripheral Edema: No Airway Assessment Mallampati Score:: Class III C-Spine Mobility Assessed: Yes TMJ Mobility Assessed: Yes Dentition: Good Dentition Neurological Assessment Level of Consciousness: Awake, Alert, Appropriate and Follows Commands Hx Seizures: No Numbness or tingling in extremities: No Anesthesia Plan Anesthesia Risk discussed: Yes ASA Class: III Anesthesia Type: MAC Preoperative Comments Pre-Operative Comments: Atrial Fib. DM. Increased weight.
== END 2023-08-30 10:50 | disposition home or self-care (01) ==
PROVIDERS: PCP Student in an Organized Health Care Education/Training Program; Visit Provider Internal Medicine
PROC: (CPT 45380; principal; 2023-08-30 09:30)
DX: Z12.11 Encounter for screening for malignant neoplasm of colon (principal); Z86.010 Personal history of colon polyps; K57.30 Diverticulosis of large intestine without perforation or abscess without bleeding; K64.8 Other hemorrhoids; K63.5 Polyp of colon
CPT/HCPCS: 45380; 88305

== ENCOUNTER 2023-12-28 14:39 | Outpatient (CLI) | payer MEDICARE, SELFPAY ==
[2023-12-28 13:00] LABS: Microscopic, Urine URINE MICROSCOPIC (MICROSCOPIC)
[2023-12-28 13:15] LABS: Basophils % 0.5 % (0.1-2.0); Eosinophils # 0.2 K/mm3 (0.0-0.4); Eosinophils % 2.7 % (0.1-12.0); Hematocrit 44.8 % (42.0-52.0); Hemoglobin 14.7 g/dL (14.1-18.0); Lymphocytes # 1.6 K/mm3 (0.7-4.5); Lymphocytes % 23.7 % (10-50); Mean Corpuscular HGB Conc 32.8 g/dL (31.8-35.4); Mean Corpuscular Hemoglobin 29.5 pg (27.0-31.2); Mean Corpuscular Volume 90.1 fl (80-94); Mean Platelet Volume 9.6 fl (7.4-10.4); Monocytes # 0.4 K/mm3 (0.1-1.0); Monocytes % 5.9 % (1.7-9.3); Neutrophils # 4.5 K/mm3 (1.8-7.8); Neutrophils % 67.2 % (37.0-80.0); Platelet Count 195 K/mm3 (142-424); Red Blood Count 4.97 M/mm3 (4.60-6.20); Red Cell Distribution Width 14.1 % (11.5-17.5); White Blood Count 6.7 K/mm3 (4.8-10.8)
[2023-12-28 13:32] LABS: Alanine Aminotransferase 28 U/L (12-78); Albumin Level 4.5 g/dl (3.5-5.0); Albumin/Globulin Ratio 1.5 (1.1-1.8); Alkaline Phosphatase 58 U/L (38-126); Anion Gap 14.3 mEq/L (5-15); Aspartate Amino Transferase 30 U/L (17-59); Bilirubin,Total 1.4 mg/dl (0.2-1.3); Blood Urea Nitrogen 13 mg/dl (9-20); Calcium 9.8 mg/dl (8.4-10.2); Carbon Dioxide 30 mmol/L (22.0-30.0); Chloride 100 mmol/L (98-107); Chol/HDL Ratio 3.9 (1-3.5); Cholesterol 130 mg/dl (140-200); Estimated Glomerular Filt Rate 88 ml/min (>60); GFR (African American) 106 ML/MIN (>60); Globulin 3.1 g/dL (1.3-3.2); Glucose 87 mg/dl (74-100); HDL Cholesterol 33 mg/dl (40-60); Potassium 4.3 mmoL/L (3.5-5.1); Sodium 140 mmol/L (136-145); Total Protein,Serum 7.6 g/dl (6.3-8.2); Triglycerides 103 mg/dl (30-150); VLDL Cholesterol 21 mg/dL (0-40)
[2023-12-28 13:34] LABS: Hemoglobin A1C 5.7 % (4.0-6.0)
[2023-12-28 13:39] LABS: Appearance,Urine CLEAR (Clear); Bilirubin,Urine Negative (Negative); Blood, Urine Negative (Negative); Color,Urine YELLOW (Yellow); Glucose,Urine (UA) Negative (Negative); Ketones,Urine Negative (Negative); Leukocyte Esterase,Urine Negative (Negative); Nitrate,Urine Negative (Negative); Protein,Urine Negative (Negative); Specific Gravity, Urine 1.025 (1.005-1.030)
[2023-12-28 13:48] LABS: Free T4 (Free Thyroxine) 1.11 ng/dl (0.78-2.19)
[2023-12-28 13:50] LABS: 25-OH Vitamin D, Total 53.5 ng/mL (30-100)
[2023-12-28 13:54] LABS: Creatinine,Urine Random 183 mg/dL (Not Estab.); Microalbumin/Creatinine Ratio 3.8
[2023-12-28 14:02] LABS: Thyroid Stimulating Hormone 1.07 uIU/mL (0.465-4.68)
[2023-12-28 14:26] LABS: Vitamin B12 > 1000 pg/mL (239-931)
== END 2023-12-28 23:59 | disposition home or self-care (01) ==
LOC: LAB.DROPOF 14:40
PROVIDERS: PCP Nurse Practitioner Family; Visit Provider Nurse Practitioner Family
DX: E11.9 Type 2 diabetes mellitus without complications (principal); R53.83 Other fatigue; G47.33 Obstructive sleep apnea (adult) (pediatric); E78.5 Hyperlipidemia, unspecified; I10 Essential (primary) hypertension; E55.9 Vitamin D deficiency, unspecified; G25.81 Restless legs syndrome; G62.9 Polyneuropathy, unspecified; F41.9 Anxiety disorder, unspecified; R39.9 Unspecified symptoms and signs involving the genitourinary system; Z68.34 Body mass index [BMI] 34.0-34.9, adult; Z79.84 Long term (current) use of oral hypoglycemic drugs; Z79.85 Long-term (current) use of injectable non-insulin antidiabetic drugs; Z87.891 Personal history of nicotine dependence
CPT/HCPCS: 80053; 80061; 81001; 82043; 82306; 82570; 82607; 83036; 84156; 84439; 84443; 85025; 87086

== ENCOUNTER 2024-06-24 16:00 | Outpatient (CLI) | payer MEDICARE, SELFPAY ==
[2024-06-24 17:05] LABS: Erythrocyte Sedimentation Rate 21 mm/hr (0-20)
[2024-06-24 17:30] LABS: Alanine Aminotransferase 33 U/L (12-78); Albumin Level 4.3 g/dl (3.5-5.0); Albumin/Globulin Ratio 1.5 (1.1-1.8); Alkaline Phosphatase 61 U/L (38-126); Anion Gap 12.4 mEq/L (5-15); Aspartate Amino Transferase 34 U/L (17-59); Bilirubin,Total 1.7 mg/dl (0.2-1.3); Blood Urea Nitrogen 10 mg/dl (9-20); Calcium 9.6 mg/dl (8.4-10.2); Carbon Dioxide 29 mmol/L (22.0-30.0); Chloride 103 mmol/L (98-107); Estimated Glomerular Filt Rate 87 ml/min (>60); GFR (African American) 106 ML/MIN (>60); Globulin 2.8 g/dL (1.3-3.2); Glucose 82 mg/dl (74-100); Potassium 4.4 mmoL/L (3.5-5.1); Sodium 140 mmol/L (136-145); Total Protein,Serum 7.1 g/dl (6.3-8.2)
[2024-06-24 17:35] LABS: C-Reactive Protein 1.6 mg/L (0-4)
[2024-06-24 17:46] LABS: Hemoglobin A1C 5.4 % (4.0-6.0)
[2024-06-24 18:01] LABS: Prostate Specific Ag Screen 0.7 ng/ml (0.0-4.0)
[2024-06-25 07:57] LABS: HCV Ab Non Reactive (Non Reactive)
[2024-06-25 13:54] LABS: HIV Combo NEGATIVE (Negative)
== END 2024-06-24 23:59 | disposition home or self-care (01) ==
LOC: LAB.DROPOF 06-25 10:22
PROVIDERS: PCP Nurse Practitioner Family; Visit Provider Nurse Practitioner Family
DX: E11.69 Type 2 diabetes mellitus with other specified complication (principal); R10.11 Right upper quadrant pain; I10 Essential (primary) hypertension; E78.5 Hyperlipidemia, unspecified; K21.9 Gastro-esophageal reflux disease without esophagitis; F32.A Depression, unspecified; I48.91 Unspecified atrial fibrillation; E55.9 Vitamin D deficiency, unspecified; Z11.59 Encounter for screening for other viral diseases; Z12.5 Encounter for screening for malignant neoplasm of prostate; Z11.4 Encounter for screening for human immunodeficiency virus [HIV]
CPT/HCPCS: 80053; 83036; 85651; 86140; 86803; 87389; G0103

== ENCOUNTER 2024-07-19 10:16 | Outpatient (CLI) | payer MEDICARE, SELFPAY ==
--- NOTE | 2024-07-19 10:24 | CT_ITS ---
FINAL REPORT TECHNIQUE: Axial CT of the abdomen and pelvis, without and with IV contrast. Coronal and sagittal reconstructions were obtained and reviewed. This study was performed with techniques to keep radiation doses as low as reasonably achievable, (ALARA). Individualized dose reduction techniques using automated exposure control or adjustment of mA and/or kV according to the patient''s size were employed. CLINICAL HISTORY: RUQ pain COMPARISON: None FINDINGS: Abdomen: Lung bases are clear. Liver has an unremarkable CT appearance. The spleen, pancreas and adrenal glands are unremarkable. Solid organs enhance in a normal fashion. The gallbladder is contracted. Precontrast imaging shows no renal stone disease. Postcontrast imaging of the kidneys shows no mass or obstruction. No bowel obstruction or fluid collection is seen. Pelvis: The appendix is normal. There is mild sigmoid diverticulosis. The mild prostate enlargement is noted. The urinary bladder is unremarkable. No fluid collection or adenopathy is seen. IMPRESSION: Unremarkable exam Reviewed, Interpreted and Dictated by Kortney Blackmon MD Transcribed by Leda Whalen Authenticated and [facility]
--- NOTE | 2024-07-19 10:46 | HMH.ITSTN ---
I spoke with patient prior to CT abdomen and pelvis with iv contrast. In our EMR patient has Iodinated contrast allergy with rash reaction. He told me iv contrast make him very nauseous to where he almost vomits or does. He signed consent form giving me permission to give him iv contrast knowing it could make him nauseous.
[2024-07-19] MEDS: SODIUM CHLORIDE 0.9% 10ML SYR (RAD ONLY) 10 ML IV (10:50)
[2024-07-19] MEDS: IOPAMIDOL-370 (76%);100ML BOTTLE 75 ML IV (10:50)
--- NOTE | 2024-07-19 10:51 | HMH.ITSTN ---
After contrast injection patient felt normal with no feeling of nausea or vomiting. Left with paul-bag just in case.
== END 2024-07-19 23:59 | disposition home or self-care (01) ==
LOC: RAD 10:18
PROVIDERS: PCP Nurse Practitioner Family; Visit Provider Nurse Practitioner Family
DX: R10.11 Right upper quadrant pain (principal)
CPT/HCPCS: 74178; Q9967

== ENCOUNTER 2024-12-30 15:53 | Outpatient (CLI) | payer MEDICARE, SELFPAY ==
[2024-12-30 12:19] LABS: Microscopic, Urine URINE MICROSCOPIC (MICROSCOPIC)
[2024-12-30 12:57] LABS: Appearance,Urine CLEAR (Clear); Basophils % 0.3 % (0.1-2.0); Bilirubin,Urine Negative (Negative); Blood, Urine Negative (Negative); Color,Urine YELLOW (Yellow); Eosinophils # 0.3 Kmm3 (0.0-0.4); Eosinophils % 3.9 % (0.1-12.0); Glucose,Urine (UA) Negative (Negative); Hemoglobin 14.6 g/dL (14.1-18.0); Immature Granulocytes # 0.02 10^3uL; Immature Granulocytes % 0.3 %; Ketones,Urine Negative (Negative); Leukocyte Esterase,Urine Negative (Negative); Lymphocytes # 1.8 K/mm3 (0.7-4.5); Lymphocytes % 28.5 % (10-50); Mean Corpuscular HGB Conc 33.2 g/dL (31.8-35.4); Mean Corpuscular Hemoglobin 29.2 pg (27.0-31.2); Mean Platelet Volume 11.4 fl (7.4-10.4); Monocytes # 0.5 K/mm3 (0.1-1.0); Monocytes % 7.8 % (1.7-9.3); Neutrophils # 3.8 K/mm3 (1.8-7.8); Neutrophils % 59.2 % (37.0-80.0); Nitrate,Urine Negative (Negative); Nucleated Red Blood Cells # 0 10^3/uL; Nucleated Red Blood Cells % 0 %; Platelet Count 228 K/mm3 (142-424); Protein,Urine Negative (Negative); Red Cell Distribution Width-SD 41.9 fL; Specific Gravity, Urine 1.015 (1.005-1.030); Urobilinogen,Urine 0.2 EU/dl (0.2); White Blood Count 6.5 K/mm3 (4.8-10.8)
[2024-12-30 13:01] LABS: Creatinine,Urine Random 93 mg/dL (Not Estab.)
[2024-12-30 13:05] LABS: WBC,Urine Occasional #/hpf (0-3)
[2024-12-30 13:08] LABS: Microalbumin < 6.000 mg/L (0-16.7)
[2024-12-30 13:17] LABS: Alanine Aminotransferase 31 U/L (12-78); Albumin Level 4.4 g/dl (3.5-5.0); Albumin/Globulin Ratio 1.5 (1.1-1.8); Alkaline Phosphatase 60 U/L (38-126); Anion Gap 8.9 mEq/L (5-15); Aspartate Amino Transferase 33 U/L (17-59); Bilirubin,Total 1.4 mg/dl (0.2-1.3); Blood Urea Nitrogen 12 mg/dl (9-20); Calcium 10.3 mg/dl (8.4-10.2); Carbon Dioxide 30 mmol/L (22.0-30.0); Chloride 103 mmol/L (98-107); Chol/HDL Ratio 3.7 (1-3.5); Cholesterol 134 mg/dl (140-200); Estimated Glomerular Filt Rate 87 ml/min (>60); GFR (African American) 106 ML/MIN (>60); Glucose 101 mg/dl (74-100); HDL Cholesterol 36 mg/dl (40-60); Magnesium 1.9 mg/dl (1.6-2.3); Phosphorous 3.2 mg/dl (2.5-4.5); Potassium 4.9 mmoL/L (3.5-5.1); Sodium 137 mmol/L (136-145); Total Protein,Serum 7.4 g/dl (6.3-8.2); Triglycerides 139 mg/dl (30-150); VLDL Cholesterol 28 mg/dL (0-40)
[2024-12-30 13:27] LABS: Direct LDL Cholesterol 69.28 mg/dL (100-129)
[2024-12-30 14:04] LABS: Vitamin B12 393 pg/mL (239-931)
[2024-12-30 16:08] LABS: Hemoglobin A1C 6.5 % (4.0-6.0)
== END 2024-12-30 23:59 | disposition home or self-care (01) ==
LOC: LAB.DROPOF 15:53
PROVIDERS: PCP Nurse Practitioner Family; Visit Provider Nurse Practitioner Family
DX: Z00.00 Encounter for general adult medical examination without abnormal findings (principal); I10 Essential (primary) hypertension; G25.81 Restless legs syndrome; E11.9 Type 2 diabetes mellitus without complications; G47.33 Obstructive sleep apnea (adult) (pediatric); E78.5 Hyperlipidemia, unspecified; K21.9 Gastro-esophageal reflux disease without esophagitis; F32.A Depression, unspecified; F41.9 Anxiety disorder, unspecified; R53.83 Other fatigue; R41.3 Other amnesia; R39.9 Unspecified symptoms and signs involving the genitourinary system
CPT/HCPCS: 80053; 80061; 81001; 82043; 82570; 82607; 83036; 83735; 84100; 84156; 85025; 87086

== ENCOUNTER 2025-07-07 09:53 | Outpatient (CLI) | payer MEDICARE, SELFPAY ==
[2025-07-07 13:27] LABS: Hematocrit 45.8 % (42.0-52.0); Hemoglobin 14.9 g/dL (14.1-18.0); Immature Granulocytes % 0.3 %; Mean Corpuscular HGB Conc 32.5 g/dL (31.8-35.4); Mean Corpuscular Hemoglobin 28.7 pg (27.0-31.2); Mean Corpuscular Volume 88.2 fl (80-94); Nucleated Red Blood Cells % 0 %; Platelet Count 220 K/mm3 (142-424); Red Blood Count 5.19 M/mm3 (4.60-6.20); Red Cell Distribution Width-SD 41.1 fL; White Blood Count 5.9 K/mm3 (4.8-10.8)
[2025-07-07 13:43] LABS: Hemoglobin A1C 5.4 % (4.0-6.0)
[2025-07-07 13:55] LABS: Anion Gap 12.7 mEq/L (5-15); Blood Urea Nitrogen 12 mg/dl (9-20); Calcium 9.5 mg/dl (8.4-10.2); Carbon Dioxide 30 mmol/L (22.0-30.0); Chloride 99 mmol/L (98-107); Cholesterol 136 mg/dl (140-200); Creatinine,Serum 1.00 mg/dl (0.66-1.25); Estimated Glomerular Filt Rate 77 ml/min (>60); GFR (African American) 93 ML/MIN (>60); Glucose 85 mg/dl (74-100); HDL Cholesterol 35 mg/dl (40-60); Potassium 4.7 mmoL/L (3.5-5.1); Sodium 137 mmol/L (136-145); Triglycerides 161 mg/dl (30-150)
== END 2025-07-07 23:59 | disposition home or self-care (01) ==
LOC: LAB.DROPOF 13:50
PROVIDERS: PCP Nurse Practitioner Family; Visit Provider Nurse Practitioner Family
DX: E11.69 Type 2 diabetes mellitus with other specified complication (principal); Z12.5 Encounter for screening for malignant neoplasm of prostate; I10 Essential (primary) hypertension; E78.5 Hyperlipidemia, unspecified; R53.83 Other fatigue
CPT/HCPCS: 80048; 80061; 83036; 85025; G0103